=== PATIENT | female | born 1940 | race Caucasian/White ===

== ENCOUNTER 2020-05-26 10:42 | Outpatient (CLI) | payer MEDICARE, OTHER, SELFPAY ==
[2020-05-26 11:46] LABS: Anion Gap 8 mmol/L (8-16); Blood Urea Nitrogen 18 mg/dL (7-17); Carbon Dioxide 29 mmol/L (22-30); Chloride 105 mmol/L (98-107); Estimated Glomerular Filt Rate 43; Glucose 110 mg/dL (65-105); Potassium 3.6 mmol/L (3.4-5.0); Sodium 142 mmol/L (137-145)
== END 2020-05-26 10:43 | disposition home or self-care (01) ==
LOC: ANHSURGERY 10:52
PROVIDERS: Anesthesiology; PCP Internal Medicine; Visit Provider Urology
DX: N90.89 Other specified noninflammatory disorders of vulva and perineum (principal); E11.9 Type 2 diabetes mellitus without complications; Z01.818 Encounter for other preprocedural examination
CPT/HCPCS: 36415; 80048; 87086; 87088

== ENCOUNTER → 2020-05-28 00:14 | Outpatient (CLI) | payer MEDICARE, OTHER, SELFPAY ==
[2020-05-28 17:44] LABS: SARS-CoV-2 RNA PCR Negative
== END ==
PROVIDERS: PCP Internal Medicine; Visit Provider Urology
DX: Z01.812 Encounter for preprocedural laboratory examination (principal); Z20.822 Contact with and (suspected) exposure to COVID-19
CPT/HCPCS: C9803; U0003; U0005

== ENCOUNTER 2020-05-31 00:55 | Day surgery (SDC) | payer MEDICARE, OTHER, SELFPAY ==
[2020-05-24 13:51] VITALS: BMI 24.6
--- NOTE | 2020-05-28 18:12 | PM.IMHP ---
H&P: HPI History of Present Illness Date/Time: 05/28/20 18:12 80 yo with significant atrophic vaginitis and labial adhesions Chief Complaint: labial ahdesions Review of Systems Review of Systems: All systems reviewed & are unremarkable except as noted in HPI and below PMFSH Family History Family History (Updated 05/28/20 @ 18:15 by Kushal Greenwood MD) Other Diabetes mellitus Heart disease Social History Social History Smoking packs per day: 1 Smoking cigarettes per day: 20.0 Years smoked: 35 Smoking pack-years: 35.00 Smoking status: Former smoker Tobacco type: cigarettes Smoking end date: 03/05/04 Spiritual care concerns: No Meds Home Medications and Allergies Home Medications Medication Instructions Recorded Confirmed Type atorvastatin 80 mg PO DAILY 05/24/20 05/24/20 History cholecalciferol (vitamin D3) 25 mcg PO DAILY 05/24/20 05/24/20 History clopidogrel 75 mg PO DAILY 05/24/20 05/24/20 History lisinopril 40 mg PO DAILY 05/24/20 05/24/20 History metformin 500 mg PO BID 05/24/20 05/24/20 History metoprolol tartrate 50 mg PO QAM 05/24/20 05/24/20 History nifedipine 30 mg PO QAM 05/24/20 05/24/20 History ranolazine [Ranexa] 500 mg PO BID 05/24/20 05/24/20 History Allergies Allergy/AdvReac Type Severity Reaction Status Date / Time etodolac Allergy Mild RASH Unverified 05/24/20 13:20 nitrofurantoin Allergy Unknown unknown Unverified 05/24/20 13:20 pregabalin AdvReac Unknown LETHARGY, Verified 05/24/20 13:20 DIZZINESS Exam Const: General: cooperative and healthy appearing HENMT: Ears: hearing grossly normal bilaterally Resp: Effort & Inspection: normal respiratory effort and able to speak in complete sentences GI: Inspection: normal to inspection Neuro: General: oriented to person Assessment and Plan Assessment and plan (1) Labial adhesion, acquired: Code(s): N90.89 - Other specified noninflammatory disorders of vulva and perineum Status: Acute Assessment and Plan: lysis of adhesions, cysto
[2020-05-31] VITALS (10 sets, daily range): BP systolic 126–199; BP diastolic 60–80; PULSE 60–72; RESP 12–18; TEMP 36.9–37.2; O2SAT 94–100
--- NOTE | 2020-05-31 07:20 | WPDHPUPDATE1 ---
History and Physical Update Update Date/Time: 05/31/20 07:20 History and Physical has been reviewed, including an updated exam of the patient. There are NO changes in the patient's condition. Risks, benefits, and alternatives have been discussed and questions answered. Patient agrees to proceed with procedure.
[2020-05-31] MEDS: LACTATED RINGERS 1,000 ML 30 ML IV CONT (13:45)
[2020-05-31 13:55] LABS: Glucose Point of Care 134 (65-105)
--- NOTE | 2020-05-31 14:33 | WPDANESEPPF ---
Anes - Initial Pre Proc Eval Procedure: Operation Date: 05/31/20 15:15 Proposed Procedures p Lysis Labial Adhesions, Vaginal Biopsy - Kushal Greenwood MD Date/Time: 05/31/20 14:33 Surgeon: Kushal Greenwood MD Pre Op Diagnosis: labial adhesions Patient Data Age: 80 Gender: F Height: 5 ft 5 in Weight: 62.6 kg Last Vital Signs Temp 36.9 C 05/31/20 13:45 Pulse 70 05/31/20 13:45 Resp 16 05/31/20 13:45 BP 171/64 H 05/31/20 13:45 Pulse Ox 98 05/31/20 13:45 Allergies Allergy/AdvReac Type Severity Reaction Status Date / Time etodolac Allergy Mild RASH Unverified 05/31/20 14:02 nitrofurantoin Allergy Unknown unknown Unverified 05/31/20 14:02 pregabalin AdvReac Unknown LETHARGY, Verified 05/31/20 14:02 DIZZINESS Home Medications Medication Instructions Recorded Confirmed Type atorvastatin 80 mg PO DAILY 05/24/20 05/24/20 History cholecalciferol (vitamin D3) 25 mcg PO DAILY 05/24/20 05/24/20 History clopidogrel 75 mg PO DAILY 05/24/20 05/24/20 History lisinopril 40 mg PO DAILY 05/24/20 05/24/20 History metformin 500 mg PO BID 05/24/20 05/24/20 History metoprolol tartrate 50 mg PO QAM 05/24/20 05/31/20 History nifedipine 30 mg PO QAM 05/24/20 05/31/20 History ranolazine [Ranexa] 500 mg PO BID 05/24/20 05/24/20 History Laboratory Tests 05/31/20 13:52 POC Capillary Glucose 134 mg/dl H mg/dl (65-105) Patient hx anesthesia problems: none Family hx anesthesia problems: none PMFSH Past Medical History Medical History CAD (coronary artery disease) Diabetes HTN (hypertension) Neuropathy Peripheral vascular disease Surgical History Surgical History Stented coronary artery Family History Family History (Updated 05/28/20 @ 18:15 by Kushal Greenwood MD) Other Diabetes mellitus Heart disease Social History Social History Smoking packs per day: 1 Smoking cigarettes per day: 20.0 Years smoked: 35 Smoking pack-years: 35.00 Smoking status: Former smoker Tobacco type: cigarettes Smoking end date: 03/05/04 Living arrangements: with family Spiritual care concerns: No Anes - Eval Final PreProcedure Day of Procedure 05/31/20 14:33 Patient weight: normal Heart: regular rate and rhythm Lungs: decreased breath sounds Airway: Mallampati scale class II Neurological: other (alert) Last oral intake: >/= 8 hours ASA classification: III Emergent: no Anesthetic plan: proceed Anesthesia type and monitoring: general GIVS and standard monitoring Informed Consent: The patient's anesthetic plan and its attendant risks and benefits were discussed with the patient/family/POA. Questions were solicited and answers provided to the satisfaction of the patient/family/POA.
[2020-05-31] MEDS: ceFAZolin 2 GM/D5W 50 ML 2 GM/50 ML BAG IVPB (15:05)
--- NOTE | 2020-05-31 15:41 | PM.PROC ---
Procedure Note - Detailed Date of procedure: 05/31/20 Pre-op diagnosis: labial adhesions Post-op diagnosis: same Procedure performed: Lysis of labial adhesions Vaginal biopsy Cystoscopy Description of procedure: She was correctly identified. Informed consent obtained. She from the operating room. She was given general anesthesia. She was prepped and draped in a sterile fashion. Time-out performed. Exam revealed a completely fused labia infused vagina. There is a pinpoint hole. She has apparently vaginal voiding and urine is dripping out the small pinpoint hole. 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 I was able to dilate this pinpoint hold open the vagina. This resulted a some tearing of the skin. I used Metzenbaum scissors to perform a skin biopsy. I then closed this with a running 4 0 Vicryl suture. I was able locate the urethra. It was normal. Cystoscopy was normal as well. There is no bladder abnormalities. Ureteral orifices were normal. Urethra is normal as well. I put a significant amount of Premarin cream on the vaginal mucosa. She was then awakened and transferred to PACU in stable condition. Anesthesia: GLMA Surgeon: Kushal Greenwood MD Estimated blood loss (mL): 5 Drains: No Packing: No Pathology: yes (Vaginal skin biopsy) Complications: No immediate complications
[2020-05-31] MEDS: fentaNYL CITRATE INJ (*CRX) 100 MCG/2 ML VIAL 25 MCG IV PUSH ×3 (16:01→16:19)
--- NOTE | 2020-05-31 16:09 | SUR.PHASEI ---
1609- BG checked 115 at this time.
[2020-05-31 16:25] LABS: Glucose Point of Care 115 (65-105)
== END 2020-05-31 17:44 | disposition home or self-care (01) ==
PROVIDERS: PCP Internal Medicine; Visit Provider Urology
PROC: (CPT 57260; principal; 2020-05-31 15:15)
DX: N76.1 Subacute and chronic vaginitis (principal); Z87.891 Personal history of nicotine dependence; Z79.84 Long term (current) use of oral hypoglycemic drugs; I11.9 Hypertensive heart disease without heart failure; I25.10 Atherosclerotic heart disease of native coronary artery without angina pectoris; E11.40 Type 2 diabetes mellitus with diabetic neuropathy, unspecified; I73.9 Peripheral vascular disease, unspecified; Z95.5 Presence of coronary angioplasty implant and graft
CPT/HCPCS: 52000; 57105; 56441; 82948; 88305; A9270; J0690; J2405; J2704; J3010; J7030; J7120; Q9968

== ENCOUNTER 2021-01-25 14:25 | Emergency (ER) | payer MEDICARE, OTHER, SELFPAY ==
--- NOTE | ~2021-01-25 | XR_ITS ---
XR chest 1V portable 01/25/2021 18:14 Indication: Abnormal CT. Lytic lesions of the skull. Procedure: AP portable chest Comparison: 03/02/2012 Findings: Bibasilar airspace disease. Cardiomegaly. There is atherosclerosis of the aorta. No pleural effusion or pneumothorax. No acute osseous abnormality. Impression: 1: Bibasilar airspace disease may represent atelectasis or pneumonia. Reviewed, dictated and finalized at location A. ERER Impression: 1: Bibasilar airspace disease may represent atelectasis or pneumonia.
--- NOTE | ~2021-01-25 | CT_ITS ---
EXAMINATION: CT brain wo con DATE: 01/25/2021 15:08 INDICATION: Double vision and dizziness TECHNIQUE: Computed tomography (CT) of the head was performed without intravenous contrast. The dose- length product was 605.33 mGy-cm. Automated exposure control and iterative reconstruction technique w ere employed. COMPARISON: No prior studies for comparison. FINDINGS: Mild generalized atrophy. There are scattered mild periventricular and subcortical white ma tter changes, most likely related to small vessel ischemic disease (microangiopathy). There is intrac ranial atherosclerosis. No acute intracranial hemorrhage, infarction, mass or mass effect. Paranasal sinuses and mastoids are pneumatized. No depressed skull fractures. There are multiple lytic lesions of the occipital skull. IMPRESSION: 1. No acute intracranial abnormality. 2: Lytic lesions of the occipital skull. Consider metastatic disease and myeloma. Correlate for hist ory of malignancy. 3: Chronic age-related changes. Reviewed, dictated and finalized at location A. RTAINMENT DANCER IMPRESSION: 1. No acute intracranial abnormality. 2: Lytic lesions of the occipital skull. Consider metastatic disease and myelo ma. Correlate for history of malignancy. 3: Chronic age-related changes.
[2021-01-25 14:35] VITALS: BP 180/67; PULSE 81
--- NOTE | 2021-01-25 14:35 | ECG_ITS ---
Measurements Intervals [place] Rate: 79 P: 73 NJ: 193 QRS: 63 QRSD: 78 T: 71 QT: 364 QTc: 419 Interpretive Statements SINUS RHYTHM INCOMPLETE RIGHT BUNDLE BRANCH BLOCK BASELINE ARTIFACT- I, III, AVR, AVL BORDERLINE ECG Electronically Signed On 01-25-2021 16:28:53 SENIOR TECHNICAL BUSINESS ANALYST by Jerson Madrigal D.O.
[2021-01-25 14:36] VITALS: BP 144/59; PULSE 80; RESP 19; TEMP 35.7; O2SAT 100
[2021-01-25 14:47] LABS: Basophils Absolute Auto 0.1 K/mm3 (0.0-0.1); Basophils Percent Auto 0.5 % (0.2-1.2); Eosinophils Absolute Auto 0.1 K/mm3 (0-0.3); Eosinophils Percent Auto 1.2 % (0-4.4); Hematocrit 38.2 % (37.0-47.0); Hemoglobin 12.6 g/dL (12.0-15.0); Immature Granulocyte Absolute 0.05 K/mm3 (0.00-0.031); Immature Granulocyte Percent A 0.5 % (0-0.5); Lymphocytes Absolute Auto 1.85 K/mm3 (0.9-3.2); Lymphocytes Percent Auto 19.3 % (18.3-44.2); Mean Corpuscular Hemoglobin 30.9 pg (26-34); Mean Corpuscular Volume 93.6 fl (80-100); Mean Platelet Volume 8.8 fl (7.4-10.4); Monocytes Absolute Auto 0.6 K/mm3 (0.1-0.6); Monocytes Percent Auto 6.2 % (2.6-8.5); Neutrophils Absolute Auto 6.9 K/mm3 (1.3-6.7); Neutrophils Percent Auto 72.3 % (45.5-73.1); Platelet Count Result 320 k/mm3 (150-375); Red Blood Count 4.08 M/mm3 (4.2-5.4); Red Cell Distribution Width 12.5 % (11.5-14.5); White Blood Count 9.6 K/mm3 (4.5-10.0)
--- NOTE | 2021-01-25 14:48 | PC.NURSE ---
Spoke with EDBrayan Jamison about pt sx, verbal order given for stat CT of head.
[2021-01-25 14:59] LABS: Alanine Aminotransferase 18 U/L (4-35); Albumin Level 4.3 g/dL (3.5-5.1); Alkaline Phosphatase 71 U/L (38-126); Anion Gap 11 mmol/L (8-16); Aspartate Amino Transferase 24 U/L (14-36); Bilirubin,Total 0.5 mg/dL (0.2-1.3); Blood Urea Nitrogen 24 mg/dL (7-17); Calcium 9.6 mg/dL (8.4-10.2); Carbon Dioxide 24 mmol/L (22-30); Chloride 99 mmol/L (98-107); Estimated CRCL calculation 29 ml/min; Estimated Glomerular Filt Rate 43; Glucose 132 mg/dL (65-110); Potassium 4.4 mmol/L (3.4-5.0); Sodium 134 mmol/L (137-145)
--- NOTE | 2021-01-25 15:01 | PC.NURSE ---
Pt to CT.
[2021-01-25 16:58] VITALS: BP 174/53; PULSE 75
[2021-01-25 17:03] VITALS: BP 137/61; PULSE 93
[2021-01-25 19:05] LABS: Add Urine Microscopic? YES; Appearance Urine Clear (Clear); Bilirubin Urine Negative (Negative); Blood Urine Negative (Negative); Color Urine Straw (Yellow); Glucose Urine UA Negative (Negative); Ketones Urine Negative (Negative); Leukocyte Esterase Ur Negative LEU/UL (Negative); Nitrate Urine Negative (Negative); Protein Urine 1+ mg/dL (Negative); RBC Urine 0-2 /hpf (0-2); Specific Grav Ur 1.008 (1.001-1.035); Squamous Epithelial Cell Urine Rare /hpf (Few); Urobilinogen Urine Negative mg/dL (<2.0); WBC Urine 0-3 /hpf
--- NOTE | 2021-01-25 19:30 | ED.DIZZY ---
HPI - Dizziness General Chief Complaint: Syncope Stated Complaint: syncope Time Seen by Provider: 01/25/21 16:18 Source: patient and family Mode of arrival: ambulatory Limitations: no limitations History of Present Illness HPI Narrative: 80-year-old female History of diabetes, peripheral neuropathy, CAD with stent, syncope Here today because of a episode of dizziness which occurred while she was standing and doing the dishes this afternoon This episode did remind her of previous episodes of syncope which she has experienced in the last 1 or 2 years, however she did not actually faint and the episode improved after a few moments She went in to her bedroom to lie down and while she was doing that she felt like her vision was swimming and straight lines appeared wiggly She did not complain of a headache, numbness, or weakness She does not describe vertigo-like symptoms She did not have chest pain, shortness of breath, palpitations, nausea or vomiting Right now she feels great She has some concerns that the Cipro which she is taking for UTI might be part of the problem, she notes that she rarely reads the patient information but she did today and dizziness is 1 of the possible side effects Related Data Home Medications Medication Instructions Recorded Confirmed atorvastatin 80 mg PO DAILY 05/24/20 05/24/20 cholecalciferol (vitamin D3) 25 mcg PO DAILY 05/24/20 05/24/20 clopidogrel 75 mg PO DAILY 05/24/20 05/24/20 lisinopril 40 mg PO DAILY 05/24/20 05/24/20 metformin 500 mg PO BID 05/24/20 05/24/20 metoprolol tartrate 50 mg PO QAM 05/24/20 05/31/20 nifedipine 30 mg PO QAM 05/24/20 05/31/20 ranolazine [Ranexa] 500 mg PO BID 05/24/20 05/24/20 Allergies Allergy/AdvReac Type Severity Reaction Status Date / Time etodolac Allergy Mild RASH Unverified 05/31/20 14:02 nitrofurantoin Allergy Unknown unknown Unverified 05/31/20 14:02 pregabalin AdvReac Unknown LETHARGY, Verified 05/31/20 14:02 DIZZINESS Review of Systems Review of Systems: All systems reviewed & are unremarkable except as noted in HPI and below Constitutional: Constitutional: Reports no additional constitutional complaints, Denies chills, Denies fever(s), Denies headache(s) and Reports weakness Eyes: Eyes: Reports no additional eye complaints and Denies change in vision ENT: Denies headache(s) and Denies sore throat Cardiovascular: Cardiovascular: Denies chest pain and Denies dyspnea Respiratory: Respiratory: Denies cough and Denies dyspnea Gastrointestinal: Gastrointestinal: Denies abdominal pain, Denies nausea and Denies vomiting Comments: Always so regular Genitourinary: Genitourinary: Denies urinary frequency and Denies dysuria Musculoskeletal: Musculoskeletal: Denies deformity, Denies arthralgias, Denies joint swelling and Denies numbness Integumentary/Breasts: Skin/Breast: Denies rash and Denies wounds Neurologic: Denies vertigo, Reports dizziness, Denies headache(s), Denies focal weakness and Denies numbness Psychiatric: Psychiatric: Reports no additional psychiatric complaints Endocrine: Endocrine: Reports no additional endocrine complaints Hematologic/Lymphatic: Hematologic/Lymphatic: Reports no additional hematologic/lymphatic complaints Allergic/Immunologic: Allergic/Immunologic: Reports no additional allergic/immunologic complaints [facility] Past Medical History Medical History CAD (coronary artery disease) Diabetes HTN (hypertension) Neuropathy Peripheral vascular disease Surgical History Surgical History Stented coronary artery Family History Family History (Updated 05/28/20 @ 18:15 by Kushal Greenwood MD) Other Diabetes mellitus Heart disease Social History Social History Smoking packs per day: 1 Smoking cigarettes per day: 20.0
[2021-01-25 19:56] VITALS: PULSE 90; RESP 16; O2SAT 98
== END 2021-01-25 19:58 | disposition home or self-care (01) ==
PROVIDERS: Emergency Medicine; Emergency Provider Emergency Medicine; PCP Internal Medicine
DX: R42 Dizziness and giddiness (principal); I25.10 Atherosclerotic heart disease of native coronary artery without angina pectoris; E11.9 Type 2 diabetes mellitus without complications; I10 Essential (primary) hypertension; Z79.84 Long term (current) use of oral hypoglycemic drugs
CPT/HCPCS: 36415; 70450; 71045; 80053; 81001; 85025; 93005; 99284

== ENCOUNTER 2021-02-27 14:45 | Emergency (ER) | payer MEDICARE, OTHER, SELFPAY ==
[2021-02-27 14:46] VITALS: BP 166/86; PULSE 80; RESP 18; TEMP 36.2; O2SAT 97
== END 2021-02-28 05:14 | disposition left against medical advice (07) ==
LOC: ANHED 15:19
DX: R11.2 Nausea with vomiting, unspecified (principal)
CPT/HCPCS: 96361; 96374; 99199; 99284

== ENCOUNTER 2021-02-27 21:44 | Emergency (ER) | payer MEDICARE, OTHER, SELFPAY ==
[2021-02-27] VITALS (8 sets, daily range): BP systolic 159–1345; BP diastolic 84–99; PULSE 72–102; RESP 14–21; TEMP 36.7; O2SAT 92–97
--- NOTE | 2021-02-27 22:37 | PC.NURSE ---
Pt reports lower abd pain and reports the medication she got 2 days ago is making her sick, so she hasn't taken it. Pt prescribed bactrim DS PO BID and pantoprazole 40 mg PO daily and has only taken the abx x 1 bc she is concerned it is making her feel sick. educated pt re: need to complete all abx as prescribed for UTI. may need reinforcement.
[2021-02-28] VITALS (12 sets, daily range): BP systolic 117–174; BP diastolic 64–76; PULSE 74–97; RESP 18–24; O2SAT 92–98
[2021-02-28] MEDS: SODIUM CHLORIDE 0.9% IV 1,000 ML 999 ML IV CONT (00:14)
[2021-02-28] MEDS: ONDANSETRON INJ 4 MG/2 ML VIAL IV PUSH (00:15)
[2021-02-28 00:23] LABS: Add Urine Microscopic? YES; Appearance Urine Clear (Clear); Bilirubin Urine Negative (Negative); Blood Urine Negative (Negative); Color Urine Yellow (Yellow); Glucose Urine UA Negative (Negative); Ketones Urine Negative (Negative); Leukocyte Esterase Ur Negative LEU/UL (Negative); Mucus Urine Rare /lpf; Nitrate Urine Negative (Negative); Protein Urine 3+ mg/dL (Negative); RBC Urine 0-2 /hpf (0-2); Specific Grav Ur 1.015 (1.001-1.035); Squamous Epithelial Cell Urine Rare /hpf (Few); Urobilinogen Urine Negative mg/dL (<2.0)
[2021-02-28 00:24] LABS: Basophils Percent Auto 0.4 % (0.2-1.2); Eosinophils Percent Auto 0.1 % (0-4.4); Hemoglobin 12.6 g/dL (12.0-15.0); Immature Granulocyte Absolute 0.04 K/mm3 (0.00-0.031); Immature Granulocyte Percent A 0.5 % (0-0.5); Lymphocytes Absolute Auto 1.17 K/mm3 (0.9-3.2); Lymphocytes Percent Auto 14.7 % (18.3-44.2); Mean Corpuscular HGB Conc 34.1 g/dl (32-36); Mean Corpuscular Hemoglobin 30.7 pg (26-34); Mean Platelet Volume 9.4 fl (7.4-10.4); Monocytes Absolute Auto 0.5 K/mm3 (0.1-0.6); Neutrophils Absolute Auto 6.2 K/mm3 (1.3-6.7); Neutrophils Percent Auto 78.3 % (45.5-73.1); Platelet Count Result 315 k/mm3 (150-375); Red Blood Count 4.11 M/mm3 (4.2-5.4); Red Cell Distribution Width 13.2 % (11.5-14.5)
[2021-02-28 00:34] LABS: Alanine Aminotransferase 16 U/L (4-35); Albumin Level 4.1 g/dL (3.5-5.1); Alkaline Phosphatase 62 U/L (38-126); Anion Gap 5 mmol/L (8-16); Aspartate Amino Transferase 24 U/L (14-36); Bilirubin,Total 0.5 mg/dL (0.2-1.3); Blood Urea Nitrogen 17 mg/dL (7-17); Calcium 9.4 mg/dL (8.4-10.2); Carbon Dioxide 24 mmol/L (22-30); Chloride 99 mmol/L (98-107); Estimated CRCL calculation 24 ml/min; Estimated Glomerular Filt Rate 39; Glucose 136 mg/dL (65-110); Lipase 164 U/L (23-300); Potassium 3.9 mmol/L (3.4-5.0); Sodium 128 mmol/L (137-145)
--- NOTE | 2021-02-28 01:34 | PC.NURSE ---
Pt given roshan schneiderers and adityaite to PO challenge pt.
--- NOTE | 2021-02-28 02:10 | PC.NURSE ---
No vomiting after PO challenge.
--- NOTE | 2021-02-28 02:23 | ED.GENADULT ---
HPI - General Adult General Chief complaint: Nausea/Vomiting/Diarrhea Stated complaint: n/v, abdominal pain Time Seen by Provider: 02/27/21 23:05 History of Present Illness HPI narrative: Patient is an 80-year-old female who presents ER with nausea and vomiting. She has an aching abdomen has been ongoing for 4 days. She was seen at an urgent care and prescribed antibiotics and after receiving Bactrim DS she feels like her nausea has gotten worse. No localizing pain. Denies urinary frequency urgency or dysuria. Patient has no antiemetics at home. Patient is without diarrhea and does not endorse constipation. Related Data Home Medications Medication Instructions Recorded Confirmed atorvastatin 80 mg PO DAILY 05/24/20 05/24/20 cholecalciferol (vitamin D3) 25 mcg PO DAILY 05/24/20 05/24/20 clopidogrel 75 mg PO DAILY 05/24/20 05/24/20 lisinopril 40 mg PO DAILY 05/24/20 05/24/20 metformin 500 mg PO BID 05/24/20 05/24/20 metoprolol tartrate 50 mg PO QAM 05/24/20 05/31/20 nifedipine 30 mg PO QAM 05/24/20 05/31/20 ranolazine [Ranexa] 500 mg PO BID 05/24/20 05/24/20 pantoprazole 40 mg PO HS 02/27/21 02/27/21 sulfamethoxazole-trimethoprim 1 tablet PO Q12H 02/27/21 02/27/21 [Bactrim DS] Allergies Allergy/AdvReac Type Severity Reaction Status Date / Time etodolac Allergy Mild RASH Verified 02/27/21 22:32 nitrofurantoin Allergy Unknown unknown Verified 02/27/21 22:32 pregabalin AdvReac Unknown LETHARGY, Verified 02/27/21 22:32 DIZZINESS Review of Systems Review of Systems: All systems reviewed & are unremarkable except as noted in HPI and below Constitutional: Constitutional: Denies chills, Denies fever(s) and Denies weakness ENT: Denies nasal congestion and Denies sore throat Cardiovascular: Cardiovascular: Denies chest pain, Denies rapid heart rate and Denies radiating jaw, neck or arm pain Gastrointestinal: Gastrointestinal: Reports abdominal pain, Reports nausea and Reports vomiting Genitourinary: Genitourinary: Denies nocturia, Denies dysuria and Denies flank pain PMFSH Past Medical History Medical History CAD (coronary artery disease) Diabetes HTN (hypertension) Neuropathy Peripheral vascular disease Surgical History Surgical History Stented coronary artery Family History Family History (Updated 05/28/20 @ 18:15 by Kushal Greenwood MD) Other Diabetes mellitus Heart disease Social History Social History Smoking packs per day: 1 Smoking cigarettes per day: 20.0 Years smoked: 35 Smoking pack-years: 35.00 Smoking status: Former smoker Tobacco type: cigarettes Smoking end date: 03/05/04 Spiritual care concerns: No Exam Narrative: GENERAL: Well-appearing, well-nourished, and in no acute distress. HEAD: Normocephalic, atraumatic. CHEST: Clear to auscultation. No respiratory distress. HEART: Regular rate and rhythm. Normal peripheral pulses. ABDOMEN: Soft, nontender, nondistended, normal active bowel sounds. EXTREMITIES: Normal range of motion. No edema. SKIN: Warm, dry, no rash. NEURO: Alert and oriented x3. PSYCH: Normal mood and affect. Course Course Emergency Course: Unremarkable evaluation with benign exam. Patient has received antiemetics and is eating and drinking without issue. No UTI or elevated white count. Discharge home. Vital Signs Vital signs: Vital Signs Temperature 98.0 F 02/27/21 22:08 Pulse Rate 102 H 02/27/21 22:08 Respiratory Rate 20 02/27/21 22:08 Blood Pressure 1345/99 H 02/27/21 22:08 Pulse Oximetry 97 02/27/21 22:08 Temperature 98.0 F 02/27/21 22:08 Pulse Rate 78 02/28/21 01:50 Respiratory Rate 21 H 02/28/21 01:50 Blood Pressure 174/64 H 02/28/21 01:50 Pulse Oximetry 96 02/28/21 01:50 Medical Decision Making Vital Signs Vital Sig
== END 2021-02-28 03:15 | disposition home or self-care (01) ==
PROVIDERS: Emergency Provider Emergency Medicine; PCP Internal Medicine
DX: R11.2 Nausea with vomiting, unspecified (principal); I10 Essential (primary) hypertension; E11.40 Type 2 diabetes mellitus with diabetic neuropathy, unspecified; E11.51 Type 2 diabetes mellitus with diabetic peripheral angiopathy without gangrene; I25.10 Atherosclerotic heart disease of native coronary artery without angina pectoris; Z79.84 Long term (current) use of oral hypoglycemic drugs; Z95.5 Presence of coronary angioplasty implant and graft; Z87.891 Personal history of nicotine dependence
CPT/HCPCS: 36415; 80053; 81001; 83690; 85025; 96361; 96374; 99199; 99284; J2405; J7030

== ENCOUNTER 2021-04-08 02:19 | Day surgery (SDC) | payer MEDICARE, OTHER, SELFPAY ==
[2021-04-05 10:28] VITALS: BMI 20.5
--- NOTE | 2021-04-05 10:43 | PC.NURSE ---
DR. NICHOLS'S OFFICE CONTACTED, SPOKE WITH CATHY AND INFORMED PT'S LAST DOSE OF PLAVIX WAS 04/05/21, STATES SHE WILL INFORM DR. NICHOLS
--- NOTE | 2021-04-05 10:55 | PC.NURSE ---
Addendum entered by Akila Chau RN 04/05/21 11:04: PT'S SPOUSE (MEGAN) AWARE TO STOP PLAVIX OF TODAY Original Note: Report to the Outpatient Waiting Room, entrance under the green pavilion located off [facility], at time ___0600____ on date __04/08/21 . OR Time: __729 . - You will be asked a series of questions to screen for COVID 19 for your protection. - A mask is required within the hospital. - No visitors are allowed at this time. Preoperative COVID Testing Requirements: No COVID Test needed if: (proof is required; if not received patient will have Rapid Test prior to entry) - Patient has received COVID Vaccine at least 14 days prior to procedure date or - Patient has positive COVID test result within last 90 days of surgery date. COVID Test needed if above criteria is not met If not COVID vaccinated a COVID test must be conducted within 72 hours of surgery and patient is asked to isolate self from time of testing until procedure. You will go to the [facility] for your COVID testing. The [employer] [facility] site is located at the corner of [address] [facility]. You will only be called if COVID results are positive and your surgeon may reschedule your elective surgery date. Patients may have clear liquids (water, carbonated beverages, clear teas, apple juice) until 3 hours prior to surgery with a maximum of 20 ounces. - No food from midnight until time of surgery - Infants may have breast milk until 4 hours before surgery, formula 6 hours prior to surgery. - Children will be allowed to drink immediately following surgery. If applicable, please bring a bottle or sippy cup to assist with drinking. Juice, water, soda, and popsicles are readily available. For infants on formula, please bring formula the day of surgery. Pacifiers are allowed. Take the following medications with a SIP of water the morning of surgery: _METOPROLOL, RANEXA_ Medications to discontinue per physician N/A Date to take last dose Please no make-up, nail micronesian, hairspray, perfume, deodorant, or body powder the day of surgery. No jewelry (including any body piercings) or valuables the day of surgery, leave them at home. Please take a shower or bath the night before, or the morning of, surgery with an antibacterial soap. Wear comfortable, loose fitting clothing. Children are encouraged to wear pajamas. - Jewelry must be removed prior to entering the operating room. Rings and piercings that are not removed may be cut off. - The hospital will not accept responsibility for valuables. - Please leave all valuables, including medications, at home the day of surgery. If you are going home after surgery, a licensed commercial collections driver must drive you home. - NO public transportation without another adult. - We recommend that an adult stay with you for 24 hours following discharge. - We also recommend that you do not drive, make important decision, drink alcoholic beverages, or take any drugs that were not prescribed by your health care provider for at least 24 hours after your discharge time. For Pediatric surgeries, we recommend two adults accompany the child home (only one inside the building at this time). Follow any additional instructions given to you from your surgeon. JAYDEN THEODORE AM OF SURGERY Telephone instructions given to ___PT'S SPOUSE (MEGAN) and asked if any additional questions and then verbalized understanding. Patient advised to call surgeon office or pre surgery nurse liaison [phone] if any additional questions.
--- NOTE | 2021-04-07 15:30 | P.PNAN_ITS ---
Anes - Eval Pre Procedure Procedure: Operation Date: 04/08/21 12:00 Proposed Procedures p Laparoscopic Cholecystectomy with Possible Intraoperative Cholangiogram, Possible Open - Leonard Dowd MD Date/Time: 04/07/21 15:30 Pre Op Diagnosis: Chronic Cholecystitis with Cholelithiasis Patient Data Age: 80 Gender: F Height: 1.65 m Weight: 55.9 kg Allergies Allergy/AdvReac Type Severity Reaction Status Date / Time etodolac Allergy Mild RASH Verified 04/05/21 10:23 nitrofurantoin Allergy Unknown unknown-PT Verified 04/05/21 10:23 UNABLE TO RECALL pregabalin AdvReac Unknown LETHARGY, Verified 04/05/21 10:23 DIZZINESS iohexol AdvReac UNABLE TO Verified 04/05/21 10:23 [From contrast - CT, X-RAY] RECALL Home Medications Medication Instructions Recorded Confirmed Type atorvastatin 80 mg PO QAM 05/24/20 04/05/21 History clopidogrel 75 mg PO DAILY 05/24/20 04/05/21 History lisinopril 20 mg PO HS 05/24/20 04/05/21 History metformin 500 mg PO BID 05/24/20 04/05/21 History metoprolol tartrate 50 mg PO BID 05/24/20 04/05/21 History nifedipine 30 mg PO QAM 05/24/20 04/05/21 History ranolazine [Ranexa] 500 mg PO BID 05/24/20 04/05/21 History aspirin [Aspir-81] 81 mg PO HS 04/05/21 04/05/21 History Patient hx anesthesia problems: none Family hx anesthesia problems: none Results Review: All pre-operative results and documents have been reviewed as part of the pre-operative evaluation. [facility] Past Medical History Medical History CAD (coronary artery disease) Diabetes HTN (hypertension) Neuropathy Peripheral vascular disease Surgical History Surgical History H/O: hysterectomy Stented coronary artery Family History Family History Other Diabetes mellitus Heart disease Hypertension Social History Social History Smoking packs per day: 1 Smoking cigarettes per day: 20.0 Years smoked: 35 Smoking pack-years: 35.00 Smoking status: Former smoker Tobacco type: cigarettes Second hand tobacco smoke exposure: No Smoking end date: 03/05/04 Alcohol intake: never Substance use type: does not use Living arrangements: with family Spiritual care concerns: No Exam Day of Procedure 04/07/21 15:30
[2021-04-08] VITALS (9 sets, daily range): BP systolic 132–193; BP diastolic 64–101; PULSE 67–98; RESP 14–22; TEMP 36.4–36.6; O2SAT 97–100; BMI 20.4
[2021-04-08 11:37] LABS: Alanine Aminotransferase 16 U/L (4-35); Albumin Level 4.1 g/dL (3.5-5.1); Alkaline Phosphatase 61 U/L (38-126); Amylase 74 U/L (30-110); Aspartate Amino Transferase 25 U/L (14-36); Bilirubin,Total 0.6 mg/dL (0.2-1.3); Lipase 302 U/L (23-300)
[2021-04-08] MEDS: LACTATED RINGERS 1,000 ML 30 ML IV CONT ×2 (12:10→14:30)
[2021-04-08] MEDS: ACETAMINOPHEN 500 MG TABLET 1000 MG PO (12:11)
[2021-04-08 12:25] LABS: Glucose Point of Care 111 mg/dl (65-105)
--- NOTE | 2021-04-08 12:37 | WPDHPUPDATE1 ---
History and Physical Update Update Date/Time: 04/08/21 12:37 History and Physical has been reviewed, including an updated exam of the patient. There are NO changes in the patient's condition. Risks, benefits, and alternatives have been discussed and questions answered. Patient agrees to proceed with procedure.
--- NOTE | 2021-04-08 12:47 | WPDANESEFPP ---
Anes - Eval Final PreProcedure Day of Procedure 04/08/21 12:47 Patient weight: normal Heart: regular rate and rhythm Lungs: clear to auscultation Airway: Mallampati scale class II Neurological: alert and oriented Last oral intake: >/= 8 hours ASA classification: III Emergent: no Anesthetic plan: proceed Anesthesia type and monitoring: general ETT and standard monitoring Results Review: All pre-operative results and documents have been reviewed as part of the pre-operative evaluation. Informed Consent: The patient's anesthetic plan and its attendant risks and benefits were discussed with the patient/family/POA. Questions were solicited and answers provided to the satisfaction of the patient/family/POA.
[2021-04-08] MEDS: ceFAZolin 2 GM/D5W 50 ML 2 GM/50 ML BAG IVPB (13:16)
[2021-04-08] MEDS: BUPIVACAINE/EPINEPHRINE 0.25% 10 ML VIAL 20 ML INFILTRATE (13:44)
--- NOTE | 2021-04-08 14:38 | P.OP_ITS ---
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 Ultrasound has shown gallstones. Findings Fairly normal appearing gallbladder that was somewhat distended. There were adhesions on the lateral side of the gallbladder between it and the omentum. Upon dividing the cystic duct after clipping 1 small black stone was identified and suctioned away. Apparently this had been sitting in the cystic duct. Description of Procedure Patient was seen preoperatively in the holding area and risks, benefits and alternatives confirmed. Patient was taken to the operating room and general anesthesia was induced. A time out was then preformed with the surgery team confirming patient and site of surgery. The abdomen was prepped and draped in the usual sterile fashion. Incision was made just below the umbilicus with an 11 blade knife. I placed 2 stay sutures of O- Vicryl on either side of the mid- line fascia beneath the umbilicus and was then able to slide in the Reynoso cannula through the fascial defect into the peritoneum. First under low flow and then under high flow the abdomen was insufflated with carbon dioxide never exceeding a pressure of 14. Three 5 mm trocars were then introduced under direct vision. The following trocars were introduced under direct vision: a 5 mm in the epigastrium and two 5 mm trocars along the right costal margin laterally in the subcostal area. There were significant omental adhesions to the underside of the gallbladder. These were taken down with blunt and sharp dissection using some Bovie cautery for hemostasis. We were able to dissect this completely away from the neck of the gallbladder. I then carefully used the L-shaped cautery and the [place] dissector to dissect out the triangle of [place]ot. I then was able to dissect out both the cystic duct and cystic artery and identify a window of safety. The gall bladder was grasped and the cystic duct and artery were dissected free and clipped with an 5 mm endo-clip retirement specialist. The cystic duct and artery were clipped with use of 2 clips on the patient's side 1 on the gallbladder side utilizing a 5 mm endoclip- retirement specialist. The cystic duct was then transected. The cystic artery was also transected at this point. The gall bladder was removed using electrocautery and then removed from the abdomen using a large 10 mm grasper via the umbilical incision. The trocars were removed visualizing hemostasis and the remaining gas evacuated. The large trocar site at the umbilicus was closed with use of the 2 stay sutures of 0 Vicryl mentioned above and also a figure of 8 O-Vicryl suture. The 2 stay sutures mentioned above on either side of the fascia were also tied together to help approximate this midline fascia. Further local anesthetic was placed into each incision for postop pain control. The skin incisions were closed with subcuticular suture of 4-0 Monocryl. Surgical glue then was applied to all the incisions. Patient tolerated the procedure well was taken to the recovery room in good condition. Implants none Estimated Blood Loss 5 Drains No Packing No Pathology yes (Gallbladder) Complications No immediate complications Condition stable Disposition PACU
[2021-04-08] MEDS: fentaNYL CITRATE INJ (*CRX) 100 MCG/2 ML VIAL 25 MCG IV PUSH ×4 (14:45→14:55)
[2021-04-08 15:27] LABS: Glucose Point of Care 150 mg/dl (65-105)
[2021-04-08] MEDS: ONDANSETRON INJ 4 MG/2 ML VIAL IV PUSH (15:43)
== END 2021-04-08 18:10 | disposition home or self-care (01) ==
PROVIDERS: PCP Internal Medicine; Visit Provider Surgery
PROC: 0FT44ZZ Resection of Gallbladder, Percutaneous Endoscopic Approach (ICD-10-PCS; CPT 47562; principal; 2021-04-08 12:30)
DX: K80.10 Calculus of gallbladder with chronic cholecystitis without obstruction (principal); K66.0 Peritoneal adhesions (postprocedural) (postinfection); I36.1 Nonrheumatic tricuspid (valve) insufficiency; I25.10 Atherosclerotic heart disease of native coronary artery without angina pectoris; E11.9 Type 2 diabetes mellitus without complications; I10 Essential (primary) hypertension; I73.9 Peripheral vascular disease, unspecified; G62.9 Polyneuropathy, unspecified; Z79.82 Long term (current) use of aspirin; Z79.84 Long term (current) use of oral hypoglycemic drugs; Z87.891 Personal history of nicotine dependence; R11.0 Nausea; R10.11 Right upper quadrant pain
CPT/HCPCS: 47562; 36415; 80076; 82150; 82948; 83690; 88304; A9270; J0690; J2405; J2704; J2710; J3010; J7030; J7120; Q9966